=== PATIENT | female | born 1930 | race Caucasian/White ===

== ENCOUNTER 2016-06-24 09:18 | Emergency (ER) | payer MEDICARE, BC ==
[2016-06-24 09:45] VITALS: BP 122/78
--- NOTE | 2016-06-24 10:03 | UC ---
Complaint Female HPI - HPI Summary HPI Summary: complaint of pain with urination that started last night increase in frequency and urgency of urination denies abdominal pain and back pain denies fever and chills took some acetaminophen without relief this morning - History Of Current Complaint Chief Complaint: UCGU Stated Complaint: URINARY COMPLAINT Time Seen by Provider: 06/24/16 09:56 Hx Obtained From: Patient - Allergies/Home Medications Allergies/Adverse Reactions: Allergies Allergy/AdvReac Type Severity Reaction Status Date / Time Penicillins AdvReac Rash Verified 06/24/16 09:45 Home Medications: Home Medications Lisinopril TAB* [Prinivil TAB 10 MG*] 30 mg PO DAILY 06/24/16 [History Confirmed 06/24/16] Metoprolol & Hydrochlorothiazi [Metoprolol Succinate ER/H 25-12.5 mg] 1 tab PO DAILY 06/24/16 [History Confirmed 06/24/16] PMH/Surg Hx/FS Hx/Imm Hx Previously Healthy: Yes Cardiovascular History Of: Reports: Cardiac Disorders - afib, Hypertension - Surgical History Surgical History: None [facility] - Family History Known Family History: Positive: Hypertension - parents Negative: Cardiac Disease, Diabetes - Social History Occupation: Retired Lives: With Family Alcohol Use: Occasionally Substance Use Type: None Smoking Status (MU): Never Smoked Tobacco Review of Systems Constitutional: Negative Skin: Negative Eyes: Negative ENT: Negative Respiratory: Negative Cardiovascular: Negative Gastrointestinal: Negative Genitourinary: Dysuria, Frequency, Urgency Motor: Negative Neurovascular: Negative Musculoskeletal: Negative Neurological: Negative Psychological: Negative All Other Systems Reviewed And Are Negative: Yes Physical Exam Triage Information Reviewed: Yes Appearance: No Pain Distress, Well-Nourished Vital Signs: Initial Vital Signs Temp 98.6 F 06/24/16 09:41 Pulse 77 06/24/16 09:41 Resp 14 06/24/16 09:41 BP 122/78 06/24/16 09:41 Pulse Ox 99 06/24/16 09:41 Vital Signs Reviewed: Yes Eyes: Positive: Conjunctiva Clear ENT: Positive: Pharynx normal, TMs normal Neck: Positive: No Lymphadenopathy Respiratory: Positive: Lungs clear, Normal breath sounds, No respiratory distress, No accessory muscle use Cardiovascular: Positive: RRR, No Murmur, Pulses Normal Abdomen Description: Positive: Nontender, No Organomegaly, Soft. Negative: CVA Tenderness (R), CVA Tenderness (L), Distended, Guarding Bowel Sounds: Positive: Present Musculoskeletal: Positive: No Edema Neurological: Positive: Alert Psychological Exam: Normal Skin Exam: Normal Complaint Female Dx - Differential Dx/Diagnosis Differential Diagnosis/HQI/PQRI: Ureteral Stone, Urinary Tract Infection Provider Diagnoses: UTI Discharge - Discharge Plan Condition: Stable Disposition: HOME Prescriptions: Nitrofurantoin Monohyd Macro [Macrobid] 100 mg PO BID #10 cap Phenazopyridine TAB* [Pyridium 100 mg TAB*] 100 mg PO TID #6 tab Patient Education Materials: Urinary Tract Infection in Women (ED) Referrals: Huey MONTOYA,Wes Duran [Medical Doctor] - Additional Instructions: Please take antibiotic as directed Increase fluids and rest Take acetaminophen or ibuprofen for fever or pain Please review your discharge instructions. If your symptoms do not improve please call your primary care provider or return to urgent care.
== END 2016-06-24 10:15 | disposition home or self-care (01) ==
LOC: UCCORT 09:18
DX: N39.0 Urinary tract infection, site not specified (principal); Z88.0 Allergy status to penicillin; I48.91 Unspecified atrial fibrillation; I10 Essential (primary) hypertension; Z98.49 Cataract extraction status, unspecified eye
CPT/HCPCS: 81003; 87086; 99212; G0463

== ENCOUNTER 2017-02-03 17:23 | Emergency (ER) | payer MEDICARE, BC ==
--- NOTE | 2017-02-03 17:47 | UC ---
Complaint Female HPI - HPI Summary HPI Summary: 86 year old female presents with complains painful and frequency of urination. - History Of Current Complaint Stated Complaint: URINARY COMPLAINT Time Seen by Provider: 02/03/17 17:47 Hx Obtained From: Patient Onset/Duration: Sudden Onset Severity Initially: Moderate Severity Currently: Moderate Character: Sharp, Burning - Allergies/Home Medications Allergies/Adverse Reactions: Allergies Allergy/AdvReac Type Severity Reaction Status Date / Time Penicillins AdvReac Rash Verified 02/03/17 18:02 Home Medications: Home Medications Metoprolol Tartrate TAB* [Lopressor TAB*] 25 mg PO DAILY 02/03/17 [History Confirmed 02/03/17] PMH/Surg Hx/FS Hx/Imm Hx Previously Healthy: Yes - Surgical History Surgical History: None Surgery Procedure, Year, and Place: 2016 - Family History Known Family History: Positive: Hypertension - parents Negative: Cardiac Disease, Diabetes - Social History Alcohol Use: Occasionally Substance Use Type: None Smoking Status (MU): Never Smoked Tobacco Review of Systems Constitutional: Negative Skin: Negative Eyes: Negative ENT: Negative Respiratory: Negative Cardiovascular: Negative Gastrointestinal: Negative Genitourinary: Frequency, Urgency Motor: Negative Neurovascular: Negative Musculoskeletal: Negative Neurological: Negative Psychological: Negative All Other Systems Reviewed And Are Negative: Yes Physical Exam Triage Information Reviewed: Yes Vital Signs Reviewed: Yes Eye Exam: Normal ENT Exam: Normal Dental Exam: Normal Neck exam: Normal Neck: Positive: 1 Respiratory Exam: Normal Cardiovascular Exam: Normal Abdominal Exam: Normal Musculoskeletal Exam: Normal Neurological Exam: Normal Psychological Exam: Normal Skin Exam: Normal Complaint Female Dx - Differential Dx/Diagnosis Provider Diagnoses: uti. dysuria Discharge - Discharge Plan Condition: Stable Disposition: HOME Prescriptions: Nitrofurantoin Monohyd Macro [Macrobid] 100 mg PO BID #14 cap Patient Education Materials: Urinary Tract Infection in Women (ED) Referrals: Ben Cummins MD [Primary Care Provider] - Johnnie Perez MD [Medical Doctor] -
[2017-02-03 18:07] VITALS: BP 178/91
[2017-02-03] MEDS ORDERED: Nitrofurantoin Macrocrystals* 50 MG CAP PO ONE ×3 (18:27→18:47)
== END 2017-02-03 18:57 | disposition home or self-care (01) ==
LOC: UCCORT 17:23
DX: N39.0 Urinary tract infection, site not specified (principal); R30.0 Dysuria
CPT/HCPCS: 81003; 87077; 87086; 87186; 99212; A9270-GY; G0463

== ENCOUNTER 2018-09-16 10:37 | Emergency (ER) | payer MEDICARE, BC ==
[2018-09-16] MEDS ORDERED: NS 0.9% 1000 ML** 1,000 ML IV ONE (11:02)
[2018-09-16 11:40] VITALS: BP 153/67
--- NOTE | 2018-09-16 12:22 | UC ---
Throat Pain/Nasal Rickie HPI - HPI Summary HPI Summary: 88 yo female presents accompanied by her daughter Nuha with complaints of a sore throat. Regarding her sore throat, pt states that it began last night and has persisted into today. She was in the waiting room and was called to be escorted to a room, on her way to the exam room pt had an episode of syncope. Pt does not remember this and does not recall feeling dizzy, lightheaded, or faint prior to syncope. Episode was witnessed by nursing and pt was lowered to the floor. No head injury. At that time of this interview pt is alert, but appears fatigued. Currently she endorses generalized weakness, fatigue, sore throat, and slight dizziness. She denies headache, SOB, chest pain, abdominal pain, nausea. She has a hx of afib and mentions that her "apple watch" has told her that her heart rate was very slow once or twice of the last few days. - History of Current Complaint Chief Complaint: UCGeneralIllness Stated Complaint: SORE THROAT Time Seen by Provider: 09/16/18 11:01 Hx Obtained From: Patient, Family/Silver Plater Onset/Duration: Sudden Onset Severity: Mild Pain Intensity: 3 Pain Scale Used: 0-10 Numeric - Allergies/Home Medications Allergies/Adverse Reactions: Allergies Allergy/AdvReac Type Severity Reaction Status Date / Time Penicillins Allergy Rash Verified 09/16/18 10:47 Home Medications: Home Medications Brimonidine Tartrate/Timolol [Combigan 0.2%-0.5% Eye Drops] 15 ml OP DAILY WITH MEAL 09/16/18 [History Confirmed 09/16/18] Latanoprost/Pf [Latanoprost 0.005% Eye Drop] 7.5 ml OP DAILY WITH MEAL 09/16/18 [History Confirmed 09/16/18] PMH/Surg Hx/FS Hx/Imm Hx - Additional Past Medical History Additional PMH: afib - Surgical History Surgical History: None Surgery Procedure, Year, and Place: catar2016 - Family History Known Family History: Positive: Hypertension - parents Negative: Cardiac Disease, Diabetes - Social History Lives: With Family Alcohol Use: Occasionally Substance Use Type: None Smoking Status (MU): Never Smoked Tobacco Review of Systems All Other Systems Reviewed And Are Negative: Yes Constitutional: Positive: Negative Skin: Positive: Negative Eyes: Positive: Negative ENT: Positive: Sore Throat Respiratory: Positive: Negative Cardiovascular: Positive: Negative Gastrointestinal: Positive: Negative Genitourinary: Positive: Negative Motor: Positive: Negative Neurovascular: Positive: Negative Musculoskeletal: Positive: Negative Neurological: Positive: Weakness Psychological: Positive: Negative Physical Exam - Summary Physical Exam Summary: GENERAL: NAD. Mildly pale appearing. SKIN: No rashes, sores, or open wounds. HEENT: Head: AT/NC Eyes: PERRLA. EOM intact. Conjunctiva clear without inflammation or discharge. Ears: Hearing grossly normal. TMs intact, no bulging, erythema, or edema. Nose: Nasal mucosa pink and moist. NTTP maxillary and frontal sinus. Throat: Posterior oropharynx without exudates, erythema, or tonsillar enlargement. Uvula midline. NECK: Supple. Nontender. No lymphadenopathy. CHEST: CTAB. No r/r/w. No accessory muscle use. Breathing comfortably and in no distress. CV: Bradycardic. Irregular. Pulses intact. Brisk cap refill. ABDOMEN: Soft. NTTP. No distention or guarding. Bowel sounds present MSK: FROM and 5/5 strength throughout. No edema. NEURO: Alert. PSYCH: Age appropriate behavior. Triage Information Reviewed: Yes Vital Signs: Initial Vital Signs Temp 97.9 F 09/16/18 10:54 Pulse 47 09/16/18 10:54 Resp 18 09/16/18 10:54 BP 147/62 09/16/18 10:54 Pulse Ox 96 09/16/18 10:54 Vital Signs Reviewed: Yes Throat Pain/Nasal Course/Dx - Course Course Of Treatment: EKG 42bpm atrial fib with intraventricular conduction delay. No STEMI as read by Dr. Blandon. Pt's syncope and bradycardia could be due to her beta rachel, but she has been stable with this medication for some time. I recommended to pt and daughter that she be transferred to the ER for further evaluation - they were agreeable to this. IVF were started and pt left via EMS in stable condition. - Differential Dx/Diagnosis Provider Diagnosis: Syncope, Bradycardia, Afib, Sore throat Discharge - Sign-Out/Discharge Documenting (check all that apply): Patient Departure All imaging exams completed and their final reports reviewed: No Studies - Discharge Plan Condition: Fair Disposition: TRANS HIGHER [facility] CARE FAC Referrals: Ben Cummins MD [Primary Care Provider] - - Billing Disposition and Condition Condition: FAIR Disposition: Trans Higher Lvl of Care Fac
== END 2018-09-16 11:28 | disposition short-term general hospital (02) ==
LOC: UCEAST 10:37
DX: J02.9 Acute pharyngitis, unspecified (principal); R55 Syncope and collapse; R00.1 Bradycardia, unspecified; I48.91 Unspecified atrial fibrillation; Z88.0 Allergy status to penicillin
CPT/HCPCS: 93005; 96360; 99213; G0463

== ENCOUNTER 2018-09-16 12:01 | Observation (INO) | payer MEDICARE, BC ==
[2018-09-16 12:57] LABS: ABS Basophils 0.1 10^3/ul (0-0.2); ABS Eosinophils 0.1 10^3/ul (0-0.6); ABS Lymphocytes 0.8 10^3/ul (1.0-4.8); ABS Monocytes 0.8 10^3/ul (0-0.8); ABS Neutrophils 9.3 10^3/ul (1.5-7.7); Eosinophil % 0.9 %; Hematocrit 41 % (35-47); Lymphocyte % 7.4 %; Mean Corpuscular HGB Conc 34 g/dL (31-36); Mean Corpuscular Hemoglobin 31 pg (27-31); Mean Corpuscular Volume 91 fL (80-97); Mean Platelet Volume 8.3 fL (7.4-10.4); Platelet Count 226 10^3/uL (150-450); Red Blood Count 4.47 10^6 /uL (3.70-4.87); Red Cell Distribution Width 13 % (10-15); White Blood Count 11.1 10^3/uL (3.5-10.8)
--- NOTE | 2018-09-16 13:01 | ED ---
Syncope/Near Syncope - HPI Summary HPI Summary: This pt is an 88 Y/O F presenting to [facility] from with her daughter and a CC of a syncopal episode this morning. Her daughter states that she drove her mother into the urgent care this morning where she was complaining about being dizzy while standing. She had a syncopal episode, which lasted around 60 seconds , after standing up from a sitting position. The daughter stated that the pt did not hit her head at all. The pt stated that she felt weak when standing. She stated that she has a slight headache, sore throat, congestion and has been dehydrated since 09/14/18. She denies any CP, N/V, SOB, and fevers. She stated that when she does not drink enough water she becomes weaker and stated no alleviating factors. Daughter reports that she had an apple watch which showed a heart rate in the 30s several days ago. - History Of Current Complaint Chief Complaint: EDSyncope Time Seen by Provider: 09/16/18 12:04 Hx Obtained From: Patient Onset/Duration: Sudden Onset, Lasting Days - 2, Still Present, Worse Since - this morning [employer] Timing: Intermittent Episode Lasting - 60 seconds Context: Witnessed - daughter Activity At Onset: Other - standing Associated Head Trauma: No Aggravating Factor(s): Position Change - standing, dehydration Alleviating Factor(s): Spontaneous Resolution Associated Signs And Symptoms: Negative - CP, N/V, SOB, and fevers, Headache, Weakness, Other - dehydration - Allergies/Home Medications Allergies/Adverse Reactions: Allergies Allergy/AdvReac Type Severity Reaction Status Date / Time Penicillins Allergy Rash Verified 09/16/18 10:47 Home Medications: Home Medications Warfarin TAB(*) [Coumadin TAB(*)] 3 mg PO DAILY 09/16/18 [History Confirmed 07/30] PMH/Surg Hx/FS Hx/Imm Hx Previously Healthy: Yes Endocrine/Hematology History: Denies: Hx Diabetes, Hx Thyroid Disease Cardiovascular History: Reports: Hx Hypertension Respiratory History: Denies: Hx Asthma, Hx Chronic Obstructive Pulmonary Disease (COPD) GI History: Denies: Hx Ulcer Musculoskeletal History: Denies: Hx Rheumatoid Arthritis, Hx Osteoporosis - Cancer History Hx Chemotherapy: No Hx Radiation Therapy: No - Surgical History Surgery Procedure, Year, and Place: 2016 - Immunization History Immunizations Up to Date: Yes Infectious Disease History: No Infectious Disease History: Denies: Hx Hepatitis, Hx Human Immunodeficiency Virus (HIV), Traveled Outside the [place] in Last 30 Days - Family History Known Family History: Positive: Hypertension - parents Negative: Cardiac Disease, Diabetes - Social History Occupation: Retired Lives: Alone Alcohol Use: Occasionally Alcohol Amount: 1 glass of wine Hx Substance Use: No Substance Use Type: Reports: None Hx Tobacco Use: No Smoking Status (MU): Never Smoked Tobacco Review of Systems Negative: Fever Negative: Chest Pain Negative: Shortness Of Breath Negative: Vomiting, Nausea Positive: Weakness, Syncope All Other Systems Reviewed And Are Negative: Yes Physical Exam - Summary Physical Exam Summary: Constitutional: elderly female, Alert. (-) Distressed Skin: Warm, Dry HENT: Normocephalic; Atraumatic Eyes: Conjunctiva normal Neck: Musculoskeletal ROM normal neck. (-) JVD, (-) Stridor, (-) Nuchal rigidity Cardio: Bradycardia and irregularly irregular, Heart sounds normal; Intact distal pulses; Radial pulses are 2+ and symmetric. (-) Murmur Pulmonary/Chest wall: Effort normal. (-) Respiratory distress, (-) Wheezes, (-) Rales Abd: Soft, (-) tenderness, (-) Distension, (-) Guarding, (-) Rebound Musculoskeletal: (-) Edema Lymph: (-) Cervical adenopathy Neuro: Alert, Oriented x3 Psych: Mood and affect Normal Triage Information Reviewed: Yes Vital Signs On Initial Exam: Initial Vitals Temp Pulse Resp BP Pulse Ox 97.9 F 50 16 147/72 97 09/16/18 12:03 09/16/18 12:03 09/16/18 12:03 09/16/18 12:03 09/16/18 12:03 Vital Signs Reviewed: Yes Diagnostics - Vital Signs Vital Signs Temp Pulse Resp BP Pulse Ox 09/16/18 12:39 97 09/16/18 12:03 97.9 F 50 16 147/72 97 - Laboratory Result Diagrams: 09/16/18 12:45 09/16/18 12:45 Lab Statement: Any lab studies that have been ordered have been reviewed, and results considered in the medical decision making process. - Radiology CXR Radiology Interpretation Completed By: Radiologist Summary of Radiographic Findings: 1. CARDIOMEGALY. 2. FINDINGS SUGGESTIVE OF OLD GRANULOMATOUS DISEASE. ED Physician has reviewed this report. - EKG 1211 Cardiac Rate: Bradycardia - 53 BPM EKG Rhythm: Atrial Fibrillation Ectopy: None Summary of EKG Findings: EKG at 1211 reveals atrial fibrillation with a rate of 53 BPM. No STEMI. No acute changes. Interpreted by Dr. Bates at 1218 . 1219 Cardiac Rate: Bradycardia - 54 BPM EKG Rhythm: Atrial Fibrillation Ectopy: None Summary of EKG Findings: EKG at 1219 reveals normal sinus rhythm 54 BPM, nml axis, nml intervals. No STEMI. No acute changes. Interpreted by Dr. Bates at 1220 09/16/18. Course/Dx Course Of Treatment: 88-year-old female with a history of afib on metoprolol presents with every afternoon bradycardia. Physical exam elderly female no distress. Heart rate in the 50s to 60s, EKG from urgent care with a heart rate in the 40s. Patient has a heart rate recorded as low as 30s on her apple watch , suspect that syncope could be secondary to bradycardia from metoprolol. Check labs including electrolytes, troponin, as well as EKG here and will monitor. Likely TBA to monitor on telemetry for further episodes of bradycardia and medication titration. Regarding sore throat, suspect that this is likely secondary to viral URI, patient had mild congestion and upper respiratory symptoms. - Diagnoses Provider Diagnoses: Syncope, Bradycardia - Physician Notifications Discussed Care of Patient With: Myranda Potter Time Discussed With Above Provider: 14:45 Instructed by Provider To: Admit As Inpatient Admit/Transition Orders Completed By ED Provider: Yes Discharge - Sign-Out/Discharge Documenting (check all that apply): Patient Departure - admitted Patient Received Moderate/Deep Sedation with Procedure: No - Discharge Plan Condition: Stable Disposition: [facility]ED TO [facility] - Billing Disposition and Condition Condition: STABLE Disposition: Admitted to [facility] - Attestation Statements Document Initiated by Scribe: Yes Documenting Scribe: Peter Conklin Provider For Whom Vanessa is Documenting (Include Credential): Amara Bates MD Scribe Attestation: Peter Villafana, scribed for Amara Bates MD on 09/16/18 at 1940. Scribe Documentation Reviewed: Yes Provider Attestation: The documentation as recorded by the Peter arriola accurately reflects the service I personally performed and the decisions made by me, Amara Bates MD Status of Scribe Document: Viewed
[2018-09-16 13:15] LABS: Troponin I 0.01 ng/mL (<0.04)
[2018-09-16 13:20] LABS: Albumin 4.2 g/dL (3.2-5.2); Albumin/Globulin Ratio 1.6 (1-3); BUN/Creatinine Ratio 19.4 (8-20); Calcium 9.3 mg/dL (8.6-10.3); EGFR African American 92.7 (>60); EGFR Non-African American 76.6 (>60); Globulin 2.7 g/dL (2-4); Potassium 4.6 mmol/L (3.5-5.0); Total Bilirubin 1.2 mg/dL (0.2-1.0); Total Protein 6.9 g/dL (6.4-8.9)
[2018-09-16 13:38] LABS: TSH (Thyroid Stimulating Horm) 3.31 mcIU/mL (0.34-5.60)
[2018-09-16 13:43] LABS: INR 2.17 (0.82-1.09)
[2018-09-16] MEDS ORDERED: hydrALAZINE IV* 20 MG/ML VIAL IV SLOW PU ONE (14:48)
[2018-09-16] MEDS ORDERED: Acetaminophen TAB* 325 MG PO PRN (15:24)
[2018-09-16] MEDS ORDERED: Warfarin TAB(*) 3 MG PO ONE (17:00)
[2018-09-16] MEDS ORDERED: amLODIPine TAB* 5 MG PO SCH (18:00)
--- NOTE | 2018-09-16 18:38 | HP ---
CC: Ben Cummins MD * HISTORY AND PHYSICAL: DATE OF ADMISSION: PRIMARY CARE PHYSICIAN: Ben Cummins MD HEALTHCARE PROXY: Nuha, her daughter. CODE STATUS: Full code. CHIEF COMPLAINT: Syncope. HISTORY OF PRESENT ILLNESS: Ms. Crowell is an 88-year-old woman with atrial fibrillation and hypertension who is presenting after a syncopal episode in urgent care. The patient states that she was in her usual state of health until last night when she was experiencing a sore throat. Because she was planning to travel soon, she decided to go today to the urgent care to have a checkup given the sore throat. She states that when she woke up in the morning , she was in a reece and did not eat or drink before heading to the clinic. She states that as she was waiting in line to register in clinic with her daughter, she started to feel weak and she told her daughter that she felt like she needed to sit down, so she was sitting in a chair for a couple of minutes, and then when she got up to walk again, she felt weak and lightheaded and does not remember what happened after that. Her daughter, Nuha, was there and reports that she saw her mother starting to fall. Patient's daughter and medical staff were able to catch the patient, so that she did not actually fall or hit her head. She was carried to a chair and quickly regained consciousness. There was no witnessed jerking motions. The patient did not bite her tongue or have bowel or bladder incontinence. The patient denied prodrome of wooziness, diaphoresis, or urgency to go to the restroom. On interview, the patient reports that her sore throat is nearly gone and that she has had no recurrence of her symptoms of lightheadedness and weakness. She also reports she was able to ambulate to the bathroom and back without any symptoms. In the emergency room, the patient was noted to have a heart rate of 40s initially. EKG showed atrial fibrillation with heart rate 54. Daughter had recording of the patient's heart rate as taken by her Apple watch over the last few weeks and noted that the patient's heart rate frequently dipped to the upper 30s or lower 40s, although it appears that the patient had not been symptomatic at this time. PAST MEDICAL HISTORY: 1. Atrial fibrillation, on warfarin. 2. Hypertension. 3. Hospitalization at [facility] several years ago for syncope in the setting of poor p.o. intake on a hot day and prolonged standing. HOME MEDICATIONS: 1. Warfarin 3 mg nightly. 2. Metoprolol succinate 25 mg daily. 3. Lisinopril 30 mg daily. 4. Latanoprost and brimonidine/timolol eye drops. ALLERGIES: PENICILLIN caused rash. FAMILY HISTORY: Largely unknown. SOCIAL HISTORY: The patient lives alone. She is a retired behavioral school counselors. Her healthcare proxy is her daughter, Nuha. The patient denies current or history of smoking or recreational drug use. She has a rare glass of wine. REVIEW OF SYSTEMS: A complete 10-point review of systems was performed and pertinent positives and negatives are listed in the HPI. PHYSICAL EXAMINATION GENERAL: She is a pleasant appearing woman, in no acute distress. She is alert and interactive and answers all questions appropriately. VITAL SIGNS: Afebrile, heart rate 70s, blood pressure 177/84, respiratory rate 16, oxygen saturation 96% on room air. NECK: No JVD. Supple. LUNGS: Clear to auscultation bilaterally. HEART: Irregularly irregular. No murmurs, gallops, or rubs. ABDOMEN: Soft, nontender, nondistended. EXTREMITIES: Warm and well perfused without edema. NEUROLOGIC: A and O x3. No focal neuro deficits. DIAGNOSTIC STUDIES/LAB DATA: WBC 11.1 without a left shift. Sodium 133 with unknown baseline. INR 2.17. Chest x-ray with cardiomegaly and findings suggestive of old granulomatous disease. EKG with bradycardia of 54 without P-waves, so likely in atrial fibrillation, 1 PVC. ASSESSMENT AND PLAN: Ms. Crowell is an 88-year-old woman with atrial fibrillation, on warfarin, and hypertension who is presenting after a syncopal episode in urgent care and is found with bradycardia in the emergency room without significant lab abnormalities. 1. Symptomatic bradycardia. Likely, this is the cause of the patient's syncopal episode. She did not have a prodrome suggesting neurocardiogenic syncope or any other signs suggesting seizure. The patient does report history of bradycardia on her beta-rachel, so this medication will be held. She reports that she did miss her morning doses of her medications, so it is likely that metoprolol is already wearing off, which is why she was noted to have a heart rate in the 70s on exam with complete resolution of her presenting symptoms. She will remain on telemetry overnight and have an echocardiogram and repeat EKG in the morning. We will avoid rate limiting agents and consider rhythm control if the patient has rapid atrial fibrillation in the future. Continue warfarin dosed by level. 2. Hypertension. The patient notably hypertensive in the emergency room to 200 /106. We will increase the patient's home lisinopril from 30 to 40 and start amlodipine tonight. 3. DVT prophylaxis: The patient is on therapeutic anticoagulation. 4. Code status: The patient is a full code. TIME SPENT: Approximately 60 minutes was spent on admission of this patient, more than half of which was spent at the bedside for interview and exam. [id number]/CPS #: [id number] LATONYA
[2018-09-16] MEDS: Ondansetron INJ* 2 MG/ML VIAL IV PRN (19:41)
[2018-09-16] MEDS ORDERED: Lisinopril TAB* 10 MG PO SCH (21:00)
[2018-09-16] MEDS ORDERED: Enoxaparin(*) 30 MG/0.3 ML SYR SUBCUT SCH (21:00)
[2018-09-16] MEDS ORDERED: Latanoprost 0.005%* 2.5 ml BTL BOTH EYES SCH (21:00)
[2018-09-16] MEDS: Brimonidine/Timolol 0.2%/0.5% OPTH(NF) SOL 5 ML BOTH EYES SCH (22:44)
[2018-09-17] MEDS: Ondansetron INJ* 2 MG/ML VIAL IV PRN (02:18)
[2018-09-17 06:27] LABS: INR 2.4 (0.82-1.09)
[2018-09-17 06:34] LABS: BUN/Creatinine Ratio 20.6 (8-20); Calcium 9.1 mg/dL (8.6-10.3); EGFR African American 108.2 (>60); EGFR Non-African American 89.4 (>60); Magnesium 1.9 mg/dL (1.9-2.7)
[2018-09-17 09:01] VITALS: BP 150/76
--- NOTE | 2018-09-17 09:02 | ECHO ---
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 History: Atrial fibrillation. Risk factors: Hypertension. Conclusions Summary: - Left ventricle: Systolic function is normal. The estimated ejection fraction is 60-65%. - Left atrium: The atrium is severely dilated. - Right atrium: The atrium is moderately dilated. - Mitral valve: Appears mildly calcified. The leaflets are mildly thickened. Mobility of the posterior leaflet is mild restricted possibly due to annular calcium. The findings are consistent with trivial stenosis. There is mild to moderate regurgitation. - Aortic valve: Mild focal calcification involving the noncoronary cusp. The NCC and LCC are most restricted. Noncoronary cusp mobility is mildly restricted. The 2d findings are consistent with moderate stenosis. The continuity equation is c/w mild to moderate . Consider low gradient moderate Aortic Stenosis. - Tricuspid valve: There is moderate regurgitation. Study data: Transthoracic echocardiogram. Procedure: Transthoracic echocardiography was performed. Image quality was good. Complete 2D, spectral Doppler, and color flow Doppler. Location: Bedside. Patient status: Inpatient. Patient room number: 438. No prior study is available for comparison. Rhythm: Atrial fibrillation. Findings Left ventricle: The cavity size is normal. There is focal basal hypertrophy. Systolic function is normal. The estimated ejection fraction is 60-65%. Wall motion is normal; there are no regional wall motion abnormalities. Left ventricular diastolic function parameters are indeterminate. Right ventricle: The cavity size is normal. Systolic function is normal. Systolic pressure is at the upper limits of normal. Left atrium: The atrium is severely dilated. Right atrium: The atrium is moderately dilated. Mitral valve: Appears mildly calcified. The leaflets are mildly thickened. Mobility of the posterior leaflet is mild restricted possibly due to annular calcium. The findings are consistent with trivial stenosis. There is mild to moderate regurgitation. Aortic valve: The valve is trileaflet. Mild focal calcification involving the noncoronary cusp. The NCC and LCC are most restricted. Noncoronary cusp mobility is mildly restricted. The 2d findings are consistent with moderate stenosis. The continuity equation is c/w mild to moderate . Consider low gradient moderate Aortic Stenosis. There is trace regurgitation. Tricuspid valve: The leaflets are normal thickness. There is no evidence of stenosis. There is moderate regurgitation. Pulmonic valve: The leaflets are normal thickness. There is no evidence of stenosis. There is trace regurgitation. Aorta: There is plaque visualized in the Transverse Aorta. Ascending aorta: The ascending aorta is appears normal. The aortic root appears normal. The aortic arch appears normal. Pericardium: There is no significant pericardial effusion. Pulmonary arteries: The main pulmonary artery is normal-sized. Systolic pressure is at the upper limits of normal, estimated to be 33 mm Hg. Pulmonary artery pressure may be underestimated Systemic veins: Inferior vena cava: The vessel is normal in size. There is (>= 50%) respiratory change in the IVC dimension. Measurements Left ventricle Value Ref Aortic valve continued Value Ref KEYLA, LAX 4.0 cm 3.8 - 5.2 Peak grad, S 18.0 mm Hg ----- ESD, LAX 2.4 cm 2.2 - 3.5 LVOT/AV, VTI ratio 0.54 ----- FS, LAX 40 % 27 - 45 SELMA, VTI 1.69 cm^2 ----- PW, ED, LAX 0.9 cm 0.6 - 0.9 SELMA, Vmax 1.36 cm^2 ----- FS 40 % 27 - 45 PW, ED 0.9 cm 0.6 - 0.9 Mitral valve Value Ref E', lat adrianna, TDI (L) 8.9 cm/sec >=10.0 Peak E 1.25 m/sec - ---- E/e', lat adrianna, 14 Peak A 0 m/sec ---- - TDI Decel time 146 ms ----- E', med adrianna, TDI 7.4 cm/sec >=7.0 PHT 149 ms - ---- E/e', med adrianna, 17 Mean grad, D 1.0 mm Hg ---- - TDI Peak grad, D 8.0 mm Hg ----- E', avg, TDI 8.2 cm/sec MVA, PHT 1.5 cm^2 ---- - E/e', avg, TDI (H) 15 <=14 MVA, LVOT cont 2.0 cm^2 - ---- MR alias velocity 0.35 m/sec ----- LVOT Value Ref MR PISA radius 0.4 cm ----- Diam, S 2.00 cm Max MR v 5.87 m/sec ----- Area 3.1 cm^2 Regurg VTI 161.0 cm ----- Peak neville, S 0.93 m/sec ERO, PISA 0.06 cm^2 ----- VTI, S 19.0 cm MR vol, PISA 10 ml ----- Mean grad, S 2 mm Hg MR fraction, PISA 14 % ----- SV 59 ml SV/bsa 43 ml/m^2 Pulmonic valve Value Ref Peak v, S 0.91 m/sec ----- Ventricular septum Value Ref Peak grad, S 3.0 mm Hg ----- IVS, ED (H) 1.0 cm 0.6 - 0.9 Tricuspid valve Value Ref Right ventricle Value Ref TR peak v 2.68 m/sec <=2.8 KEYLA, LAX 2.8 cm Peak RV-RA grad, S 29 mm Hg ----- KEYLA minor ax, A4C 2.8 cm 1.9 - 3.5 Max TR neville 2.76 m/sec ----- mid Pressure, S 32 mm Hg Aortic root Value Ref Root diam 3.0 cm <3.7 Left atrium Value Ref AP dim, ES (H) 4.50 cm 2.70 - Ascending aorta Value Ref 3.80 AAo AP diam, S 2.7 cm ----- ML dim, A4C 5.7 cm SI dim, A4C 6.5 cm Aortic arch Value Ref Vol/bsa, ES, 1-p (H) 95 ml/m^2 11 - 40 Arch diam 2.0 cm ----- A4C Vol/bsa, ES, A/L (H) 119 ml/m^2 16 - 34 Decending aorta Value Ref Jet peak neville 0.63 m/sec ----- Right atrium Value Ref SI dim, ES (H) 6.5 cm 3.4 - 5.3 Pulmonary artery Value Ref ML dim, ES, A4C (H) 4.7 cm 2.6 - 4.4 Pressure, S 29.0 mm Hg ----- SI dim, ES, A4C (H) 6.5 cm 3.4 - 5.3 Estimated RAP 3 mm Hg Inferior vena cava Value Ref Diam 1.6 cm ----- Aortic valve Value Ref Adrianna diam, ED 1.8 cm Peak v, S 2.14 m/sec VTI, S 35.3 cm Mean grad, S 10.0 mm Hg Legend: (L) and (H) martha values outside specified reference range. Prepared and electronically signed by Freedom Gamble MD 09/17/2018 09:00
[2018-09-17] MEDS: Brimonidine/Timolol 0.2%/0.5% OPTH(NF) SOL 5 ML BOTH EYES SCH (09:29)
--- NOTE | 2018-09-17 22:12 | DS ---
CC: Ben Cummins MD * DISCHARGE SUMMARY: DATE OF ADMISSION: 09/16/18 DATE OF DISCHARGE: 09/17/18 PRIMARY CARE PHYSICIAN: Ben Cummins MD PRIMARY DIAGNOSIS: Syncope due to symptomatic bradycardia from beta-rachel. SECONDARY DIAGNOSES: 1. Atrial fibrillation. 2. Hypertension. DISCHARGE MEDICATIONS: 1. Warfarin 3 mg daily. 2. Lisinopril 30 mg daily. 3. Amlodipine 5 mg daily. 4. Latanoprost and brimonidine eye drops. HISTORY OF PRESENT ILLNESS: Ms. Crowell is an 88-year-old woman with atrial fibrillation, on warfarin and hypertension is presenting after syncopal episode in urgent care. She states that she was in her usual state of health until 1 night prior when she began experiencing a sore throat. As she was having upcoming travel, she decided to go on the day of presentation at urgent care to have check up for her sore throat. She states that when she woke up on morning of presentation, she was in a reece and did not eat or drink before heading to clinic. As she was standing in line to register in clinic, she started to feel weak and told her daughter, she felt like she needs to sit down. She was seated in a chair for a few minutes and when she got up to walk again, she felt weak and lightheadedness and does not remember what happened after that. Her daughter, Nuha, was there and reports that her mother started to fall and then fainted and the daughter and staff caught the patient and she did not strike the ground. The patient was carried to a chair and quickly regained consciousness. There were no witnessed jerking motions and she had no postictal state. She did not bite her tongue or have a bowel or bladder incontinence. The patient denied prodrome of wooziness, diaphoresis, or urgency to go to use the restroom. On interview, the patient states that her sore throat is also nearly resolved and then she had no further symptoms of weakness or lightheadedness even upon ambulation to the bathroom in the emergency room. HOSPITAL COURSE: In the ER, the patient had heart rate initially in the 40s. EKG showed atrial fibrillation with this rate. Daughter reported that the patient's Apple watch over the last few weeks reported frequent low heart rates into the upper 30s and lower 40s, although the patient was not having symptoms during those times. The patient was monitored overnight on telemetry and had no notable events. Her metoprolol dose was held and her heart rate stayed steady throughout admission in the 70s. An echo was performed, which was not remarkable for a cause of her syncopal episode. It was thought that she most likely fainted given symptomatic bradycardia due to beta-rachle use and poor p.o. that morning and prolonged standing at urgent care. On the day of discharge, 10-point review of systems was performed and was negative. Of note, the patient did have severe hypertension in the emergency room and she was started on amlodipine this admission with good blood pressure control. The patient's case was discussed with Dr. Gamble of cardiology, who states that patient is appropriate to follow up in cardiology clinic. She is moving from [place] to [place] and will establish care with him in cardiology clinic. PHYSICAL EXAMINATION: Afebrile, heart rate 72, blood pressure 150/76, respiratory rate 16, oxygen saturation 97% on room air. In general, she is a frail-appearing elderly woman, in no acute distress, reading her Maria L, alert and interactive, answers all questions appropriately, very pleasant. Neck: No JVD. HEENT: Moist mucous membranes. OP clear. Heart: Irregularly irregular. No murmurs, gallops, or rubs. Abdomen: Soft, nontender, nondistended. No suprapubic tenderness. Extremities: Warm and well-perfused without edema. Neuro: A and O x3. No focal deficits. DIAGNOSTIC STUDIES: WBC 1.1 without left shift. INR 2.4. Sodium low 130s. TSH 3.31. Transthoracic echocardiogram showed left ventricular systolic function normal with EF 60% to 65%. Left atrium severely dilated, right atrium moderately dilated. Mitral valve appears mildly calcified with leaflets mildly thickened. Trivial stenosis with mild to moderate regurgitation. Aortic valve with mild focal calcifications involving the noncoronary cusps consistent with moderate . DISCHARGE PLAN: The patient will be discharged home to follow up with new primary care physician in [facility] and also Dr. Gamble of Cardiology. She is to avoid future beta-rachel use and her only medication change was initiation of amlodipine during hospitalization for blood pressure control. Her and her daughter were educated on return precautions, which include recurrence of bradycardia or syncope or new symptoms of chest pain, palpitations, or rapid heart rate. The patient will continue to monitor her heart rate and blood pressure at home and can bring this log to her outpatient followup visit. She is to resume a healthy diet with activity as tolerated. DISPOSITION: Home. CONDITION: Good. TIME SPENT: Approximately 60 minutes was spent on discharge of this patient, more than half of which was spent with care coordination at bedside for interview and exam. [id number]/CPS #: [id number] LATONYA
== END 2018-09-17 11:00 | disposition home or self-care (01) ==
LOC: ED 12:01 → MEDTELE 15:24
PROVIDERS: ADMIT Internal Medicine; ATTEND Internal Medicine
DX: R00.1 Bradycardia, unspecified (principal); R55 Syncope and collapse; I48.91 Unspecified atrial fibrillation; I10 Essential (primary) hypertension; Z79.01 Long term (current) use of anticoagulants; Z79.899 Other long term (current) drug therapy; Z88.0 Allergy status to penicillin
CPT/HCPCS: 36415; 71045; 80048; 80053; 83605; 83735; 84443; 84484; 85025; 85610; 93005; 93306; 96360; 96374; 96375; 96376; 99213; 99284; A9270-GY; G0378; G0463; G8978-GP-CH; G8979-GP-CH; G8980-GP-CH; J0360; J2405

== ENCOUNTER 2018-12-14 10:43 | Observation (INO) | payer MEDICARE, BC ==
--- NOTE | 2018-12-14 11:26 | ED ---
Dizziness - HPI Summary HPI Summary: This pt is an 88 Y/O F presenting to [facility], brought in by EMS, for a CC of dizziness. She states that she was getting out of bed to go to the bathroom and was putting in her eye drops when she became dizzy. She states that she felt as if she was going to fall and was unable to stand still. She states that after putting in her eye drops she fell down and hit her head on the ground but stressed that the floor was carpeted and she has no noticeable cuts. She denies any CP, SOB, N/V, headaches, fevers, and chills. She states that she had a stress test on 12/11/18 and states that she has an appointment tomorrow with Dr. Barker. She has a PMHx of HTN and afib, and is currently on Coumadin. She had a similar admission in September for symptomatic bradycardia and was taken off her beta rachel. - History Of Current Complaint Chief Complaint: EDDizziness Stated Complaint: DIZZINESS, HEADACHE PER EMS Time Seen by Provider: 12/14/18 10:49 Hx Obtained From: Patient Last Known Well Date: 12/13/18 Onset/Duration: Unknown Timing: Constant Severity Initially: Moderate Severity Currently: None Aggravating Factor(s): Other - eye drops, standing out of bed Alleviating Factor(s): Nothing Associated Signs And Symptoms: Positive: Negative - headaches, Other: - dizzy, head injury. Negative: Nausea, Vomiting, Chest Pain, SOB, Fever, Chills - Allergies/Home Medications Allergies/Adverse Reactions: Allergies Allergy/AdvReac Type Severity Reaction Status Date / Time Penicillins Allergy Rash Verified 12/14/18 10:52 Home Medications: Home Medications Netarsudil Mesylate [Rhopressa] 1 drop BOTH EYES DAILY 12/14/18 [History Confirmed 12/14/18] PMH/Surg Hx/FS Hx/Imm Hx Previously Healthy: Yes Endocrine/Hematology History: Denies: Hx Diabetes, Hx Thyroid Disease Cardiovascular History: Reports: Hx Hypertension Respiratory History: Denies: Hx Asthma, Hx Chronic Obstructive Pulmonary Disease (COPD) GI History: Denies: Hx Ulcer Musculoskeletal History: Denies: Hx Rheumatoid Arthritis, Hx Osteoporosis Sensory History: Reports: Hx Contacts or Glasses, Hx Hearing Aid Opthamlomology History: Reports: Hx Contacts or Glasses - Cancer History Hx Chemotherapy: No Hx Radiation Therapy: No - Surgical History Surgery Procedure, Year, and Place: 2016 Infectious Disease History: No Infectious Disease History: Denies: Hx Hepatitis, Hx Human Immunodeficiency Virus (HIV), Traveled Outside the [place] in Last 30 Days - Family History Known Family History: Positive: Hypertension - parents Negative: Cardiac Disease, Diabetes - Social History Alcohol Use: Occasionally Alcohol Amount: 1 glass of wine Hx Substance Use: No Substance Use Type: Reports: None Hx Tobacco Use: No Smoking Status (MU): Never Smoked Tobacco Review of Systems Negative: Fever, Chills Negative: Chest Pain Negative: Shortness Of Breath Negative: Vomiting, Nausea Musculoskeletal: Other - head injury Neurological: Other - Dizzy All Other Systems Reviewed And Are Negative: Yes Physical Exam - Summary Physical Exam Summary: Constitutional: Well-developed, Well-nourished, Alert. (-) Distressed Skin: Warm, Dry HENT: Normocephalic; Atraumatic Eyes: Conjunctiva normal Neck: Musculoskeletal ROM normal neck. (-) JVD, (-) Stridor, (-) Nuchal rigidity Cardio: Rhythm irregular, rate normal, Heart sounds normal; Intact distal pulses ; Radial pulses are 2+ and symmetric. (-) Murmur Pulmonary/Chest wall: Effort normal. (-) Respiratory distress, (-) Wheezes, (-) Rales Abd: Soft, (-) tenderness, (-) Distension, (-) Guarding, (-) Rebound Musculoskeletal: (-) Edema Lymph: (-) Cervical adenopathy Neuro: Alert, Oriented x3, CN 2-12 grossly intact, no nystamgus, no dysmetria. Gait deferred 2/2 lightheadedness Psych: Mood and affect Normal Triage Information Reviewed: Yes Vital Signs On Initial Exam: Initial Vitals Temp Pulse Resp BP Pulse Ox 97.6 F 72 16 167/94 98 12/14/18 10:49 12/14/18 10:49 12/14/18 10:49 12/14/18 10:49 12/14/18 10:49 Vital Signs Reviewed: Yes Procedures - Sedation Patient Received Moderate/Deep Sedation with Procedure: No Diagnostics - Vital Signs Vital Signs Temp Pulse Resp BP Pulse Ox 12/14/18 10:49 97.6 F 72 16 167/94 98 - Laboratory Result Diagrams: 12/14/18 11:30 12/14/18 11:30 Lab Statement: Any lab studies that have been ordered have been reviewed, and results considered in the medical decision making process. - CT Brain CT CT Interpretation Completed By: Radiologist Summary of CT Findings: 1. No acute intracranial abnormality identified. 2. 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 3. Mild chronic small vessel slightly disease is likely. ED physician has reviewed this report. - EKG 1115 Cardiac Rate: NL - 66 BPM EKG Rhythm: Atrial Fibrillation Summary of EKG Findings: An EKG at 1115 reveals Atrial Fibrillation at 66 BPM with PVCs, a prolonged QT interval, and T wave inversion in lead 3 AVF and V1, V4-6. No STEMI. No acute changes, Interpreted by Dr. Bates at 1117 12/14/18. Re-Evaluation - Re-Evaluation First Eval Re-Evaluation Time: 13:00 Change: Unchanged Comment: The pt's daughter stressed the concern that the pt is too lightheaded to function on her own and would like her to be admitted. The pt agrees and feels the same way. Dizzy Course/Dx - Course Course Of Treatment: 88-year-old female with a history of hypertension, A. fib presents with symptomatic bradycardia who presents with lightheadedness. -PE w normal neuro, no obvious head trauma but is on Coumadin so will check CT. EKG here afib in 70s. Plan for labs, telemetry, cardiology consult, likely admission. - will obtain recent cardiology visit notes (had recent stress) - Diagnoses Provider Diagnoses: Lightheaded - Provider Notifications Discussed Care Of Patient With: Verito Alexandra Time Discussed With Above Provider: 13:09 Instructed by Provider To: Admit As Inpatient Admit/Transition Orders Completed By ED Provider: Yes Discharge ED - Sign-Out/Discharge Documenting (check all that apply): Patient Departure - admitted - Discharge Plan Condition: Stable Disposition: ADMITTED TO [facility] - Billing Disposition and Condition Condition: STABLE Disposition: Admitted to [facility] - Attestation Statements Document Initiated by Scribe: Yes Documenting Scribe: Peter Conklin Provider For Whom Scribe is Documenting (Include Credential): Amara Bates MD Scribe Attestation: IPeter, scribed for Amara Bates MD on 12/14/18 at 2112. Scribe Documentation Reviewed: Yes Provider Attestation: The documentation as recorded by the scribe, Peter Conklin accurately reflects the service I personally performed and the decisions made by me, Amara Bates MD Status of Scribarron Document: Viewed Consult Consult: Dr. Barker, neon sign maker, was consulted at 1223 and stated that she will review the pt's chart and call back with an updated plan. Dr. Barker faxed over the following information on the pt at 1300: EF 60-65%, moderate mitral insufficiency and aortic stenosis, tricuspid insufficiency. Dr. Barker was concerned for the need of a possible pacemaker and the pt was to receive a stress exercise electrocardiogram yesterday during her testing but was unable. She was then scheduled to receive the echo tomorrow during her follow up appointment. Dr. Alexandra, Hospitalist, was consulted at 1309 and informed of the pt's current condition. Dr. Alexandra accepts the pt to [facility].
[2018-12-14 11:38] LABS: ABS Eosinophils 0.1 10^3/ul (0-0.6); ABS Monocytes 0.5 10^3/ul (0-0.8); ABS Neutrophils 3.3 10^3/ul (1.5-7.7); Eosinophil % 2.9 %; Hematocrit 40 % (35-47); Hemoglobin 13.6 g/dL (12.0-16.0); Lymphocyte % 19.9 %; Mean Corpuscular HGB Conc 34 g/dL (31-36); Mean Corpuscular Hemoglobin 31 pg (27-31); Mean Corpuscular Volume 91 fL (80-97); Platelet Count 286 10^3/uL (150-450); Red Blood Count 4.41 10^6 /uL (3.70-4.87); Red Cell Distribution Width 15 % (10-15); White Blood Count 4.9 10^3/uL (3.5-10.8)
[2018-12-14 11:44] LABS: INR 1.88 (0.82-1.09)
[2018-12-14 11:56] LABS: Albumin 4.3 g/dL (3.2-5.2); Albumin/Globulin Ratio 1.5 (1-3); BUN/Creatinine Ratio 19.1 (8-20); Calcium 9.8 mg/dL (8.6-10.3); EGFR Non-African American 81.8 (>60); Globulin 2.8 g/dL (2-4); Potassium 4.2 mmol/L (3.5-5.0); Total Protein 7.1 g/dL (6.4-8.9)
[2018-12-14 11:59] LABS: Troponin I 0.01 ng/mL (<0.04)
--- OUTSIDE RECORDS SUMMARY | 2018-12-14 12:12 | XMS REPORT | Continuity of Care Document ---
:1930 External Reference #:[id number] Author Name Sarah Barker M.D. (transmitted by agent of provider Kisha Hobson) Address [address] [place] [address] Care Team Providers Name Role Phone Ben Cummins MD - Internal Care Team Information Artist Representative [phone] Medicine Problems Active Problems Provider Date Atrial fibrillation and flutter Sarah Barker M.D. Onset: 10/31/2018 Hypertensive disorder Sarah Barker M.D. Onset: 10/31/2018 Tricuspid valve disorder, non-rheumatic Sarah Barker M.D. Onset: 10/31/2018 Mitral valve disorder Sarah Barker M.D. Onset: 10/31/2018 Aortic valve disorder Sarah Barker M.D. Onset: 10/31/2018 Chronic atrial fibrillation Sarah Barker M.D. Onset: 10/31/2018 Social History Type Date Description Comments Sex Unknown ETOH Use Occasionally consumes wine Tobacco Use Start: Unknown Patient has never smoked Smoking Status Reviewed: 10/31/18 Patient has never smoked Allergies, Adverse Reactions, Alerts Active Allergies Reaction Severity Comments Date Dabigatran 10/31/2018 Penicillin 10/31/2018 Combigan Dizziness, confusion, low hr 10/31/2018 Medications Active Medications SIG Qnty Indications Ordering Provider Date Latanoprost Unknown 0.005% Solution Warfarin Sodium Unknown Lisinopril 30 mg po q day Unknown Amlodipine Besylate 1 by mouth every Unknown 5mg day Tablets Immunizations Description No Information Available Vital Signs Date Vital Result Comment 10/31/2018 2:49pm Height 62 inches 5'2" Weight 89.00 lb with shoes Heart Rate 70 /min BP Systolic 100 mmHg Lue BP Diastolic 62 mmHg Lue BP Systolic Sitting 100 mmHg Rue BP Diastolic Sitting 70 mmHg Rue BP Systolic Standing 100 mmHg Lue BP Diastolic Standing 76 mmHg Lue BMI (Body Mass Index) 16.3 kg/m2 Results Test Date Facility Test Result H/L Range Note Laboratory test 10/31/2018 [facility] Magnesium <pending> finding [address] [place] [address] [phone] Vitamin B12 And 10/31/2018 [facility] Vitamin B12 <pending> Folate Serum [address] [place] [address] [phone] Folic Acid (Folate) <pending> Procedures Date Code Description Status 10/31/2018 39934 EKG Tracing & Interpretation Completed 09/29/2018 [id number] Diabetic Retinal Eye Exam Completed 09/17/2018 22842 ECHO Transthorasic Realtime 2D W Doppler & Color Flow Completed Hosp 08/04/2018 [id number] Diabetic Retinal Eye Exam Completed Medical Devices Description No Information Available Encounters Type Date Location Provider Dx Diagnosis Office Visit 09/17/2018 [facility] Myranda Potter MD R55 Syncope and 2:47p Assoc, Hospitalists collapse R00.1 Bradycardia, unspecified I48.91 Unspecified atrial fibrillation I10 Essential (primary) hypertension Office Visit 09/16/2018 2:46p [facility] Myranda R00.1 Bradycardia, Assoc,pc MD Tariq unspecified Hospitalists I10 Essential (primary) hypertension Assessments Date Code Description Provider 10/31/2018 I48.2 Chronic atrial fibrillation Sarah Barker M.D. 10/31/2018 R55 Syncope and collapse Sarah Barker M.D. 10/31/2018 R00.1 Bradycardia, unspecified Sarah Barker M.D. 10/31/2018 I10 Essential (primary) hypertension Sarah Barker M.D. 10/31/2018 F80.1 Expressive language disorder Sarah Barker M.D. 10/31/2018 I35.0 Nonrheumatic aortic (valve) stenosis Sarah Barker M.D. 10/31/2018 I34.0 Nonrheumatic mitral (valve) insufficiency Sarah Barker M.D. 10/31/2018 I36.1 Nonrheumatic tricuspid (valve) Sarah Barker M.D. insufficiency 10/31/2018 E87.1 Hypo-osmolality and hyponatremia Sarah Barker M.D. 09/17/2018 R55 Syncope and collapse Myranda Potter MD 09/17/2018 R55 Syncope and collapse Freedom Gamble M.D. 09/17/2018 R00.1 Bradycardia, unspecified Myranda Potter MD 09/17/2018 I48.91 Unspecified atrial fibrillation Myranda Potter MD 09/17/2018 I10 Essential (primary) hypertension Myranda Potter MD 09/16/2018 R00.1 Bradycardia, unspecified Myranda Potter MD 09/16/2018 I10 Essential (primary) hypertension Myranda Potter MD Plan of Treatment Future Appointment(s):12/11/2018 1:50 pm - Sarah Barker M.D. at [facility]12/05/2018 1:00 pm - [facility] ECHO Schedule at [facility]12/05/2018 1:30 pm - Sarah Barker M.D. at [facility]2018 - Sarah Barker M.D.I48.2 Chronic atrial fibrillationNew Orders:Stress Test , Exercise Echocardiogram, Ordered: 10/31/18Comments:On coumadin for stroke prevention.Follow up:Release: cardiac catheterization allyn Skaggs (if available). after testingRecommendations:Option of changing coumadin to Eliquis for more constant blood thinning.R55 Syncope and collapseComments: Occured on metoprolol and eye gtts.R00.1 Bradycardia, unspecifiedComments: Normal now off metoprolol.I10 Essential (primary) hypertensionComments:Lower than it needs to be.Recommendations:Decrease lisinopril to 15 mg (1/5 tablet) daily.F80.1 Expressive language disorderComments:Transient, in August 2018. INR reportedly OKRecommendations:Lots of potential reasons, afib, low or high BP and more.I35.0 Nonrheumatic aortic (valve) stenosisNew Orders:Stress Test, Exercise Echocardiogram, Ordered: 10/31/18I34.0 Nonrheumatic mitral (valve) insufficiencyNew Orders:Stress Test, Exercise Echocardiogram, Ordered: I36.1 Nonrheumatic tricuspid (valve) lrtxdeshprrvbH47.1 Hypo-osmolality and hyponatremiaComments:Mildly low in September.Follow up:Release of records all [address] cummins Last H+P Dr Cummins. We will call with results Functional Status Description No Information Available Mental Status Description No Information Available Referrals Description No Information Available
[2018-12-14] MEDS ORDERED: NS 0.9% 500 ML* 500 ML IV ONE (14:17)
[2018-12-14] MEDS ORDERED: Acetaminophen TAB* 325 MG PO PRN (14:18)
[2018-12-14] MEDS ORDERED: Warfarin TAB(*) 3 MG PO SCH (17:00)
[2018-12-14] MEDS ORDERED: Warfarin TAB(*) 4 MG PO ONE (17:00)
--- NOTE | 2018-12-14 18:58 | HP ---
CC: Dr. Ben Cummins; Dr. Barker * HISTORY AND PHYSICAL: DATE OF ADMISSION: 12/14/18 TIME OF EVALUATION: 1:50 p.m. PRIMARY CARE PROVIDER: Dr. Ben Cummins. RETURN CHECKER: Dr. Barker. CHIEF COMPLAINT: Dizziness. HISTORY OF PRESENT ILLNESS: Ms. Crowell is an 88-year-old female with a past medical history of chronic atrial fibrillation, hypertension, recent admission for a syncopal episode, oqgd-hd-yjfhsblt aortic stenosis, hypertension, who presented to the emergency room with complaints of dizziness and sustaining a fall at home. She was initially admitted to [facility] in September 2018 after a syncopal episode. That was thought to be secondary to dehydration and also symptomatic bradycardia in the setting of beta-rachel use. Her metoprolol was discontinued , some eye drops were also discontinued and she says that she is feeling relatively well. She was seen by Dr. Barker on 10/31/18 and at that time the plan was for an exercise echo, to get records from her PCP and Dr. Barker thought that eventually she would need a pacemaker. Her lisinopril dose was reduced from 30 mg to 15 mg a day and plan was for return after obtaining records and having the stress test. The patient states that she is undergoing the process of moving from a much larger home to a smaller one in [place] and her daughter was helping her yesterday. They did go to a restaurant last night and the patient had eggplant parmigiana. She denies drinking any alcohol. She states that when she went to bed, she was feeling well but she felt very thirsty during the night. When she woke up, she felt dizzy, but she states that the dizziness did not feel like a spinning sensation. She states that it felt like "[place] when her home is not in [place] anymore." She states that she was able to get up and when she walked , it felt like someone was pushing her around. She denies falling towards one side more than other. She was able to reach the object she was looking for but when she returned to put the object back in place, she fell and hit her head. She says that she was not able to stand up, so she was able to hoist herself back in bed and then call her daughter for assistance. She denies chest pain, palpitations, nausea, vomiting, diarrhea or any other complaints. As described above, she felt very thirsty overnight but states that she thought she had drank an adequate amount of fluids. She also denies fever, cough, urinary complaints. PAST MEDICAL HISTORY: 1. Chronic atrial fibrillation, on anticoagulation with warfarin. 2. Hypertension. 3. Vjio-pj-byqgfabm aortic stenosis. 4. Mild mitral stenosis. MEDICATION LIST: As per Dr. Barker's last note: 1. Amlodipine 5 mg p.o. at bedtime. 2. Latanoprost 0.005%. 3. Lisinopril 15 mg p.o. daily. 4. Warfarin 3 mg p.o. daily. ALLERGIES: To PENICILLIN. FAMILY HISTORY: Father of bladder cancer. Her mother passed during childbirth. SOCIAL HISTORY: She is a retired director nursery school. No history of tobacco, alcohol or drug use. She is moving to the [facility]. Surrogate decision maker is her daughter, Nuha Crowell. REVIEW OF SYSTEMS: A 14-point review of systems was performed, and all the pertinent negatives and positive findings are in the HPI. PHYSICAL EXAMINATION GENERAL: The patient is a pleasant, elderly frail lady, sitting in the ED stretcher, in no acute distress. VITAL SIGNS: Temperature 97.6, heart rate is 79, respiratory rate is 20, oxygen saturation is 98% on 2 L nasal cannula, blood pressure is 155/94. HEENT: Pupils are equal. Dry mucous membranes. No nystagmus. CHEST: Breath sounds present bilaterally with no added sounds. CVS: Normal S1, S2. Regular rate and rhythm. ABDOMEN: Soft. Breath sounds are present. EXTREMITIES: No edema. NEURO: The patient is alert and oriented x3. Power is 5/5 in all 4 extremities. Sensation is decreased on her left leg, but the patient states that it has been like this for months. DIAGNOSTIC STUDIES/LAB DATA: The patient had a CBC that showed WBC of 4.9, hemoglobin of 13.6, hematocrit of 40, platelets of 286 with 66% neutrophils. INR is 1.88. Chemistry showed a sodium of 135, potassium of 4.2, chloride of 101, bicarb of 28, BUN of 13, creatinine of 0.68, glucose of 101, calcium is 9.8. LFTs are normal. CT of the brain without contrast showed no acute intracranial abnormality. There is an old lacunar infarct versus expanded perivascular space in the right thalamus. Mild chronic small vessel is likely diseased. EKG done on 12/14/18 at 11:15 a.m. showed atrial fibrillation, 66 beats per minute with PVCs, QTc of 517 with T-wave inversions in V4 and V5 and this has not significantly changed from her prior one but the QT is longer than before. ASSESSMENT AND PLAN: Ms. Crowell is an 88-year-old female with a past medical history of hypertension, chronic atrial fibrillation, mitral and aortic stenosis who presents to the emergency room with complaints of dizziness and after sustaining a fall. 1. Dizziness. I believe this is multifactorial. What she describes as dizziness does not have any spinning component. I suspect one of the drivers of her symptoms is dehydration secondary to very salty meal last night and not enough fluid intake. We are going to check orthostatic vital signs. I am going to give her a gentle IV hydration and continue to monitor. The patient is in atrial fibrillation and is anticoagulated with warfarin, although her INR is 1.88. 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 The patient's daughter states that the patient is always very concerned with the possibility of a stroke. At this point, she does not have any nystagmus or any other focal neurological deficit to suggest stroke, but if her symptoms persist, she may need an MRI of the brain. I will consult Neurology and she will get an higher dose of warfarin 4 mg today and we will monitor her INR level. She will be monitored with neuro checks. 2. Atrial fibrillation. It is rate controlled, off medications now. She does have QTc prolongation and etiology is unclear for me at this time. I will consult Cardiology. 3. Hypertension is controlled. We will continue amlodipine and lisinopril. 4. DVT prophylaxis: The patient has a score of 3 on the DVT Prophylaxis Risk Assessment Guide and she is anticoagulated with warfarin. 5. Code status was discussed with the patient and her daughter and she wishes to be a full code. TIME SPENT: Approximately 50 minutes was spent with the patient's interview, medical records review, physical examination to complete this admission, more than half this time was spent [id number] with the patient and coordination of care. [id number]/[facility] #: [id number] LATONYA
[2018-12-14 19:53] LABS: Urine Appearance Clear; Urine Bacteria Absent (Absent); Urine Bilirubin Negative (Negative); Urine Blood Negative (Negative); Urine Color Yellow; Urine Glucose Negative (Negative); Urine Ketones Negative (Negative); Urine Nitrite Negative (Negative); Urine Protein Negative (Negative); Urine Red Blood Cell 1+(3-5/hpf) (Absent); Urine Specific Gravity 1.012 (1.010-1.030); Urine Urobilinogen Negative (Negative); Urine White Blood Cell 1+(6-10/hpf) (Absent)
[2018-12-14] MEDS: Latanoprost 0.005%* 2.5 ml BTL BOTH EYES SCH (20:30)
[2018-12-14] MEDS: amLODIPine TAB* 5 MG PO SCH (20:32)
--- NOTE | 2018-12-14 22:33 | CONS ---
CC: Dr. Cummins; Hospitalist Service * CONSULTATION REPORT: DATE OF CONSULT: 12/14/18 REASON FOR CONSULT: Fall, possible syncope. HISTORY OF PRESENT ILLNESS: I had just met Ms. Crowell on 10/31/18 for her history of atrial fibrillation. The patient has recently moved from the [facility] to [place] and was followed by Dr. Valdivia in the past. The patient has a longstanding history of chronic atrial fibrillation on Coumadin and a history of valvular heart disease. The patient had been on beta-rachel in the past, and on 09/16/18 presented with a syncopal episode at urgent care. She was there because she had a respiratory infection and had not had anything to eat and had orthostatic weakness and lightheadedness standing up from a chair. She had transient loss of consciousness and at convenient care and in the emergency room her heart rate was in the 40s transiently. Her metoprolol was stopped. She has also had eye drops with beta-rachel and it was stopped in the past. I had lowered her lisinopril dose at her visit in October. Today, the patient stated when she awoke and got out of bed, she immediately felt like she had to hang on to something. She denied vertigo. She thought she could get up and crawl to get to the bathroom and just felt very weak, see Dr. Armstrong's notes. The patient's daughter was not there during my exam, but the patient describes the sensation that her brain was in control and she just have to hold on. The patient is currently feeling better. She has received IV fluid. She did say that today and a couple times this week she wondered if she might be having a urinary infection because of urinary frequency. PAST MEDICAL HISTORY: Includes: 1. Chronic atrial fibrillation for years. 2. Hypertension. 3. Aortic stenosis. MEDICATIONS: Outpatient medications included: 1. Lisinopril, I believe 15 mg a day. 2. Amlodipine 5 mg a day. 3. Latanoprost ophthalmic drops. 4. Coumadin. ALLERGIES: Include intolerance to PRADAXA (GI), PENICILLIN, COMBIGAN OPHTHALMIC DROPS. FAMILY HISTORY: Significant in that her mother in childbirth and her father of bladder cancer. SOCIAL HISTORY: The patient is a retired school speech language pathologist, nonsmoker, nondrinker. REVIEW OF SYSTEMS: Positive for the urinary frequency. Negative for fevers, chills, sweats. She ate a salty meal last night, was thirsty overnight and felt well yesterday, ate normally yesterday. No recent diarrhea or constipation. All other 12-point review of systems is negative. PHYSICAL EXAM: Vital Signs: The patient's blood pressure is 133/76, pulse is 87, respiratory rate 18, oxygen saturation 99% on room air. General Appearance : A petite elderly woman lying in bed, appears comfortable. Psychologically, pleasant and cooperative. Neurologically, awake, alert, and oriented to person , place, and time. Grossly normal sensory motor function in the upper and lower extremities. Gait: Not checked. Follows commands well. Skin: Warm and dry. No cyanosis or rashes. No bruising. HEENT: Mucous membranes moderately moist. Neck: Without appreciable increased JVP. Good carotid pulses with right-sided bruits. Lungs are clear with good effort. No wheezes, rales or rhonchi. Coronary: S1, S2 irregular with a soft systolic murmur heard in the right and left upper sternal borders. Abdomen: No epigastric discomfort, flat, no hepatomegaly. Lower extremities are free of edema and warm with palpable posterior tibial pulses. DIAGNOSTIC STUDIES/LAB DATA: Labs show white count 4.9, hematocrit 40, platelets 286,000. Sodium 135, potassium 4.2, chloride 101, bicarb 28, BUN 13, creatinine 0.68, glucose 101. Urinalysis not done. INR 1.88. A 12-lead ECG done today confirmed atrial fibrillation with a ventricular rate of 66 beats a minute and a single PVC in a 10 second strip. Diffuse nonspecific ST flattening. When compared with EKG in our office from 10/31/18, there are no acute changes other than a new PVC. Echocardiogram from 09/17/18 showed an ejection fraction of 60% to 65%, biatrial enlargement. Mitral annular calcification with mild mitral stenosis, mild-to- moderate mitral insufficiency, aortic valve sclerosis with mild aortic stenosis, tricuspid valve moderate regurgitation. Exercise stress test from 12/05/18 done as an outpatient showed she was able to achieve 7 METS. She had mild fatigue and shortness of breath walking. She had an appropriate blood pressure and chronotropic response. She had moderate mitral insufficiency at rest with a resting RV pressure of 27 mmHg. Her MR was moderate post exercise and RV pressure 42 mmHg and there was no inducible ischemia. Resting blood pressure 122/82, peak blood pressure 146/82. Resting pulse was 69, peak was 129. Cardiac catheterization from 2000 showed normal coronaries ([facility]). IMPRESSION AND PLAN: In summary, Yuko Crowell is an 88-year-old woman with chronic atrial fibrillation and valvular heart disease as above who presented with a fall which sounds like possibly with transient loss of consciousness and feeling dizzy immediately waking up this morning. Brain CT was done in ED this admission as she hit her head and it was negative for bleed or any other acute findings and based on the vitals available to me, there is no evidence of tachy or claudia arrhythmias would account for this or hypotension, although there is potential for all of the above. Neurologically, she seemed to have good rn gastroenterology and strength and this does not appear to be an acute presentation of a stroke. I have added urinalysis in case she has a nearly asymptomatic urinary tract infection as she said she had these in the past. This could lead to an acute drop in blood pressure. I see no point in repeating a stress test. One option would be an event monitor. External event monitor (versus implanted event monitor) to look for tachy or claudia arrhythmias. We could pull back further on her antihypertensive medications in case orthstatic drop in BP is contributing. As an outpatient, I had discussed converting her from Coumadin to Eliquis and if the patient and daughter were amenable, this could lead to more even anticoagulation. Additional recommendations will be made pending her clinical course while on telemetry. Thank you for allowing me to assist in this nice woman's care. [id number]/[facility] #: [id number] LATONYA
[2018-12-15 06:28] LABS: INR 2.01 (0.82-1.09)
[2018-12-15 06:55] LABS: TSH (Thyroid Stimulating Horm) 2.51 mcIU/mL (0.34-5.60)
[2018-12-15] MEDS ORDERED: Iohexol 350* (CONTRAST) 500 ML MDV IV ONE (08:14)
[2018-12-15 09:08] LABS: Folate 10.16 ng/mL (>3.99)
[2018-12-15] MEDS: Lisinopril TAB* 10 MG PO SCH (09:33)
--- NOTE | 2018-12-15 09:42 | CONS ---
CC: Dr. Cummins; Dr. Barker * CONSULTATION REPORT: DATE OF CONSULT: 12/15/18 PRIMARY CARE PROVIDER: Dr. Cummins. BEHAVIORIST: Dr. Barker. REASON FOR CONSULT: "Dizziness." HISTORY OF PRESENT ILLNESS: Ms. Crowell is a very nice 88-year-old female who has a history of hypertension; chronic atrial fibrillation, on Coumadin; aortic stenosis; recent admission to [facility] in September 2018 with a syncopal- type episode. She was admitted for several days. At that time per the discharge summary, it was felt that the patient suffered from symptomatic bradycardia secondary to beta-rachel use. In the ER, the patient had a heart rate in the 40s. She had a transthoracic echocardiogram done, which was unrevealing and it was felt that the beta-rahcel was likely the cause as well as prolonged standing on the day of admission. She was to be followed up with Cardiology. She was to avoid future beta-rachel use and amlodipine was started for blood pressure control. Yesterday, she came to the ER with complaints of feeling "dizzy," but she poorly describes, she states that the room was not spinning. She felt a little nauseated. The symptoms only happened when she sat up in bed or stood up, but persisted after standing. She states at one point she went to the bathroom to put her eye drops and at that time, she started to feel very "woozy." At one point, she states that she fell and tried to crawl back to bed, but she still felt that way on her hands and knees. She denied any palpitations or chest pain at the time. No shortness of breath. She had no headaches. She had no ringing in her ears or room spinning at that time , although she does have chronic ringing in her ears. She had mild nausea, no vomiting. She also notes that she has been urinating frequently recently, but no pain when she urinates. The symptoms persisted and she was brought to the ER. She did see Dr. Barker, her manager corporate, on 10/31/18 and stress echo was ordered. Also, her lisinopril was reduced from 30 to 15 mg. Per the H and P, she is in the process of moving from a larger home to a smaller home and her daughter was apparently helping her yesterday. She went to a restaurant the night before. When she went to bed, she was thirsty during the night and when she woke up, she felt dizzy that is when she stood up and felt off balance. At one point, she states that she felt like people were pushing her back and forth. When she fell, she did hit her head. She denies any headache or major injury. She states that she has longstanding numbness of the left leg. It has been going on for about a year. She denies any other history of light- headedness or falling, although when reminded of the admission back in September, she does equate to. She denies any focal weakness, any vision loss, any speech difficulties that she is aware of. No facial droop that she is aware of. This morning, she notes continuing to feel somewhat off balance when she stands up. She denies any numbness or tingling in her feet. When she stands up, she does not endorse lightheadedness but feels more "off balance." Again, no palpitations or chest pain. No shortness of breath or other symptoms. PAST MEDICAL HISTORY: As noted above. MEDICATIONS: Her home medications include: 1. Amlodipine 5 mg p.o. at bedtime. 2. Latanoprost 0.005% eye drops. 3. Lisinopril 15 mg p.o. daily. 4. Warfarin 3 mg p.o. daily. ALLERGIES: She is allergic to PENICILLIN. FAMILY HISTORY: Significant for mother who during childbirth and a father who had bladder cancer. She does not know the history of her grandparents. SOCIAL HISTORY: She denies any tobacco use. Occasional glass of wine but nothing heavy. She denies any drug use. Surrogate decision maker is her daughter, Nuha Crowell. She worked as a school bus aide. REVIEW OF SYSTEMS: A 14-organ systems as noted above, otherwise negative. PHYSICAL EXAM: Vital Signs: Temperature 98.2. Blood pressure has been 126/66 to 140/79 to 123/59 and 133/68. Pulse rate has been in the 60s to 70s, although she did have an episode overnight of bradycardia in the 50s. She is breathing 12 breaths per minute. Saturations have been 95% to 99% on room air. In general, she is a well-nourished, thin female, in no acute distress. She is lying in her hospital bed, sleeping. She awakens easily. She is pleasant. HEENT: She is normocephalic, atraumatic. Sclerae are anicteric. Mucous membranes are moist. Oropharynx is clear. Nares are patent. Neck is supple. No thyromegaly. No carotid bruits. No meningismus. Chest: Clear to auscultation bilaterally. Cardiovascular is irregularly irregular. No murmurs appreciated. Abdomen is soft, nontender. Extremities: There is no significant clubbing, cyanosis, or edema. Her skin is warm and dry. On neurologic exam, she is awake, alert, and oriented x3. Her speech is fluent. There is no dysarthria. Repetition is intact. Recall is intact. Vocabulary is intact. Her mood is dysthymic. Affect, mood congruent. Cranial Nerves: Pupils are equally round and reactive to light and accommodation. Extraocular muscles are intact except for some mild strabismus with weakness of the left lateral rectus with far left gaze. No diplopia was appreciated. No nystagmus. Face is symmetric. Facial sensation is intact to light touch. Hearing is intact bilaterally to finger rub. Palate raises symmetrically. Tongue is midline. Motor Exam: Spontaneously moving all extremities. Antigravity, 5/5 throughout. No drift is appreciated in the upper or lower extremities including the left lower extremity. Tone is normal. [id number]-[id number] and rapid alternating movements are intact without tremor, without dysdiadochokinesia. Sensation is slightly diminished to light touch and pinprick in the left leg in a non-dermatomal distribution. Otherwise, sensation is intact. Proprioception is intact. Gait was not tested as when she stands up she gets very dizzy and lightheaded. DIAGNOSTIC STUDIES/LAB DATA: Lab work includes a complete metabolic profile with a glucose of 101, TSH of 2.51 otherwise negative. CBC with diff is normal. INR of 2.01. Today, urine showed 1+ leukocyte esterase, 1+ wbc's, 1+ rbc's. She did have a brain CT done yesterday, reviewed the films, shows no acute abnormalities. She does have what looks to be a small right thalamic old infarct and some mild chronic vessel disease. She had a prior transthoracic echocardiogram in September 2018. This showed ejection fraction of 60% to 65%, left atrium severely dilated, right atrium is moderately dilated. Mitral valve calcified consistent with trivial stenosis. Aortic valve, low-grade moderate stenosis. Tricuspid valve, moderate regurg. In addition, Dr. Barker did see her yesterday, felt that at the time, there was no evidence of tachy or bradyarrhythmias, which would account for hypertension. Consider event monitor as an outpatient external versus implanted to look for bradyarrhythmias. She recommended also decreasing her blood pressure medications in case of an orthostatic drop in blood pressure. There was also some discussion of converting her from Coumadin to Eliquis and telemetry to be monitored. ASSESSMENT AND PLAN: Ms. Crowell is a very nice 88-year-old female with a history of hypertension, [id number] aortic stenosis, history of atrial fibrillation, on Coumadin, therapeutic, who was recently admitted back in September with dizziness, felt to be likely secondary to bradycardia, which was felt to be related to her beta-rachel, which was discontinued at that time. She has followed up with Dr. Barker as an outpatient. For continued monitoring , the patient was in her usual state of health when she fell the night before presentation, hit her head but no significant injury, subsequently had a difficult time getting up. She notes feeling very "off balance" when sitting in bed or standing. She denies any significant loss of consciousness, any palpitations or chest pain, shortness of breath. She denies any vertigo or ringing in her ears. No recent infections. She states that she has been drinking enough water. She denies any prior history. She was unaware of possible prior stroke but has noted some left leg numbness over the last year, which she states is not contributed to any gait abnormalities. At this point, the differential includes the possibility of a TIA versus small stroke, possibly cerebellar in nature, although she does not endorse any vertigo and she has no nystagmus on examination. The plan is to get an MRI of the brain as well as CT angiogram of the head and neck. Other considerations would be hypoperfusion related to vertebrobasilar disease or carotid disease. Again, CT angiogram should help flush this out some. In addition, there is the possibility given her history of atrial fibrillation that she may be having some claudia or tachyarrhythmia causing transient dizziness. She will be monitored on tele and we will consider outpatient event monitor versus implanted monitor to look for tachybrady arrhythmias. There is a possibility in light of a mild urinary tract infection that she could be hydrated and this could be orthostatic in nature, she did receive some IV fluids. If she continues to feel this way, my plan is to get some orthostatic blood pressures to see if she in fact does drop her blood pressure with position changes. Seizures are much less likely given the presentation, my concern is very low. We will get the studies as noted above and I will follow up and make further recommendations. Thank you for the opportunity to participate in the care of this very nice patient. [id number]/[facility] #: [id number] LATONYA
[2018-12-15 10:43] LABS: Folate 13.12 ng/mL (>3.99)
--- NOTE | 2018-12-15 14:09 | PN ---
Subjective Date of Service: 12/15/18 Interval History: Pt still feels " unsteady" on her feet when walking, although it appears that the dizziness resolved. ambulated with PT today. lives alone Objective Active Medications: Acetaminophen (Tylenol Tab*) 650 mg PO Q6H PRN PRN Reason: MILD PAIN or TEMP > 100.4 Amlodipine Besylate (Norvasc Tab*) 5 mg PO BEDTIME [facility] Last Admin: 12/14/18 20:32 Dose: 5 mg Latanoprost (Xalatan 0.005%*) 1 drop BOTH EYES B[facility] Last Admin: 12/14/18 20:30 Dose: 1 drop Lisinopril (Prinivil Tab*) 15 mg PO DAILY [facility] Last Admin: 12/15/18 09:33 Dose: 15 mg Pto:Netarsudil Mesylate [Rhopressa] 1 Drop 1 drop BOTH EYES DAILY [facility] Last Admin: 12/15/18 09:33 Dose: 1 drop Warfarin Sodium (Coumadin Tab(*)) 3 mg PO DAILY@1700 BABAK; Protocol Vital Signs - 8 hr 12/15/18 12/15/18 07:51 13:04 Temperature 98.0 F 97.8 F Pulse Rate 60 64 Respiratory 16 16 Rate Blood Pressure 135/70 154/69 (mmHg) O2 Sat by Pulse 97 100 Oximetry Oxygen Devices in Use Now: None Appearance: 88 yo f in nAD, AAOx3 Eyes: No Scleral Icterus, PERRLA Ears/Nose/Mouth/Throat: NL Teeth, Lips, Gums, Mucous Membranes Moist Neck: NL Appearance and Movements; NL JVP, Trachea Midline Respiratory: Symmetrical Chest Expansion and Respiratory Effort, Clear to Auscultation Cardiovascular: - - irregular Abdominal: NL Sounds; No Tenderness; No Distention, No Hepatosplenomegaly Lymphatic: No Cervical Adenopathy Extremities: No Edema, No Clubbing, Cyanosis Skin: No Rash or Ulcers, No Nodules or Sclerosis Neurological: Alert and Oriented x 3, NL Muscle Strength and Tone, - - gait wide slightly unsteady Result Diagrams: 12/14/18 11:30 12/14/18 11:30 Assess/Plan/Problems-Billing Assessment: 88 yo f with h/o chronic a. fib on Coumadin presents after a fall that was caused by her feeling dizzy - Patient Problems (1) Dizziness Comment: still mildly unsteady and since pt lives alone with extend OBV to cont to exercise ambulation. will repeat orthostatics adn cont telem. so far no new arrythmia noted MRI CTA brain unremarkable (apart for old lacunar infarct in thalamus) (2) Atrial fibrillation Comment: chronic, rate controlled (3) HTN (hypertension) Comment: controlled on Norvasc and lisinopril (4) DVT prophylaxis Comment: therapeutic coumadin Status and Disposition: cont OBV, likely d/c home in AM
[2018-12-15] MEDS ORDERED: Warfarin TAB(*) 3 MG PO SCH (17:00)
[2018-12-15] MEDS: amLODIPine TAB* 5 MG PO SCH (21:31)
[2018-12-15] MEDS: Latanoprost 0.005%* 2.5 ml BTL BOTH EYES SCH (21:31)
[2018-12-16] MEDS: Lisinopril TAB* 10 MG PO SCH (09:59)
[2018-12-16 12:29] VITALS: BP 148/76
--- NOTE | 2018-12-16 16:31 | DS ---
ADDENDUM NOW INCLUDED ON THIS REPORT CC: Dr. Cummins; Dr. Barker; Dr. Lewis * DISCHARGE SUMMARY: DATE OF ADMISSION: 12/14/18 DATE OF DISCHARGE: 12/16/18 PRIMARY CARE PROVIDER: Dr. Cummins. DISPOSITION AT DISCHARGE: Home. CONDITION ON DISCHARGE: Stable. DISCHARGE DIAGNOSES: 1. Fall that developed after an onset of dizziness. The dizziness was likely due to benign positional vertigo with acute cerebrovascular accident ruled out during the patient's hospital stay. 2. Chronic atrial fibrillation with episodes of slow heart rate and occasional bradyarrhythmia with sinus pauses up to 2 seconds, asymptomatic during the hospital stay. SECONDARY DIAGNOSES: 1. History of chronic atrial fibrillation. 2. History of hypertension. 3. History of aortic stenosis. MEDICATIONS AT HOME: Include: 1. Lisinopril 15 mg daily. 2. Netarsudil 1 drop both eyes daily. 3. Latanoprost 1 drop both eyes at bedtime. 4. Amlodipine 5 mg daily. 5. Coumadin 3 mg daily. 6. Cefdinir 300 mg b.i.d. Please note that just prior to the patient's discharge she felt that she had dysuria and symptoms of urinary urgency. Currently, the patient's urinalysis sample was still pending at the time of dictation, but I will send the patient with 3 days' worth of antibiotic for possibility of UTI. Please also mention that her urinalysis on 12/14/18 was grossly unremarkable with trace esterase and wbc's with no nitrites and at that point her urine cultures were negative from the previous sample. LABORATORY DATA AND STUDIES PERFORMED DURING THE HOSPITAL STAY: ncluded on 04/29, sodium 135, potassium 4.2, chloride 101, carbon dioxide 28, BUN 13, creatinine 0.68. Liver function tests unremarkable. Vitamin B12 of 428, folate of 13.1, TSH of 2.5. White blood cell count of 4.6, hemoglobin 13.6, hematocrit 40, and platelets 286. INR was last obtained on 12/15/18 and was 2.01. Brain MRI obtained on 12/15/18, impression: "No acute intracranial abnormality. Old lacunar infarct in the right thalamus. Mild chronic small vessel ischemic disease is likely. Mild cerebral volume loss." CT angiogram of the head obtained on 12/15/18, impression: "No internal carotid artery stenosis. No aneurysm, vascular malformation, occlusion, or stenosis of the visualized intracranial circulation." CTA of the neck also showed no right or left carotid artery stenosis. CONSULTATIONS DURING THE HOSPITAL STAY: Included Dr. Barker from Cardiology, Dr. Lewis from Neurology. HOSPITALIZATION COURSE: Yuko Crowell is an 88-year-old female who felt dizzy and fell hitting the back of her head. For further details of the patient's presentation, please see history and physical dictated by Dr. Armstrong as well as consultation from Dr. Barker and Dr. Lewis. Shortly, the patient continued to have problems with feeling somewhat like she would be on a ship and unsteady when she was changing her position. Nevertheless, Dr. Lewis did not notice a nystagmus or any other signs associated with benign positional vertigo. Due to that, an MRI of the brain and CT angiogram of the head and neck were obtained, which were basically unremarkable. Throughout the patient's hospital stay, her symptoms greatly improved, although she continued to have minimal symptoms with an abrupt change of position. Due to that, physical therapy evaluation was requested and the patient was basically cleared by Physical Therapy at discharge. Nevertheless, I recommended for the patient to use a walker and our family caseworker is currently working on getting the walker delivered to the patient 's house after leaving the hospital. Throughout the patient's hospital stay, the patient continued to be rate controlled with atrial fibrillation with bradycardia. At approximately 2100 on 12/15/18, the patient had 5 episodes of what appeared to be dropped QRS beat and the longest sinus pause at that point was little bit below 2 seconds. At this point, the patient was asymptomatic. I do not believe that this cardiac arrhythmia could have predisposed the patient to falls and dizziness, especially that when it occurred in the hospital, the patient was asymptomatic. Nevertheless, the patient is recommended to follow up with Dr. Barker in approximately 1 to 2 weeks in regards to possibility of event monitor placement for further evaluation for possible pacer. The patient is also recommended to follow up with her primary care provider in approximately 4 to 7 days. Just at the time of discharge, the patient felt symptoms of dysuria. Urinalysis is pending at the time of dictation. Initial urinalysis was unremarkable. The patient received a prescription for 3 days' worth of cefdinir. PHYSICAL EXAMINATION: At the time of discharge, blood pressure of 148/76, heart rate of 66 and irregularly irregular, respiratory rate 20, oxygen saturation 98% on room air, temperature 97.7. General: The patient is a very pleasant 88-year-old female, who is in no acute distress. Alert, awake, and oriented x3. HEENT: Head: Atraumatic, normocephalic. Eyes: Pupils are equal , reactive to light and accommodation. Oropharynx is clear. Mucosa moist. Neck: Supple. No JVD. No bruits bilaterally. Cardiovascular: Irregularly irregular rhythm. No murmur. Respiratory: Clear to auscultation bilaterally. Abdomen: Soft, nontender. Bowel sounds are present in all 4 quadrants. Extremities: There is no edema. Pulses are +2 bilaterally. No clubbing or cyanosis. On neuro evaluation, speech is clear. Cranial nerves II through XII are grossly intact. Motor strength is 5/5 bilaterally. The patient walks with a slightly wider gait, but unsteady. Please note that this is a short summary of the patient's hospital stay. Please refer to further medical records for details. ADDENDUM: DATE OF DISCHARGE: 12/16/18 DISPOSITION: Discharged to home. CONDITION: Stable. [id number]/[facility] #: [id number]/[facility] #: [id number] LATONYA
--- NOTE | 2018-12-16 20:06 | DS ---
DISCHARGE SUMMARY: DATE OF ADMISSION: DATE OF DISCHARGE: 12/16/18 ADDENDUM: DISPOSITION: Discharged to home. CONDITION: Stable. [id number]/[facility] #: [id number]
== END 2018-12-16 16:10 | disposition home or self-care (01) ==
LOC: ED 10:43 → MEDTELE 13:50
PROVIDERS: ADMIT Internal Medicine; ATTEND Internal Medicine
DX: Z91.81 History of falling (principal); R42 Dizziness and giddiness; I48.20 Chronic atrial fibrillation, unspecified; I25.10 Atherosclerotic heart disease of native coronary artery without angina pectoris; I10 Essential (primary) hypertension; I48.91 Unspecified atrial fibrillation; Z79.01 Long term (current) use of anticoagulants; Z88.0 Allergy status to penicillin; Z79.899 Other long term (current) drug therapy
CPT/HCPCS: 36415; 70450; 70496; 70498; 70551; 80053; 81003; 81015; 82607; 82746; 83735; 84443; 84484; 85025; 85610; 87086; 93005; 96360; 96361; 99284; A9270-GY; G0378; G8978-GP-CH; G8979-GP-CH; G8980-GP-CH; Q9967